=== PATIENT | male | born 1980 | race Caucasian/White ===

== ENCOUNTER 2025-05-05 07:53 | Emergency (ER) | payer MEDICAID, OTHER ==
[~2025-05-05] VITALS: Ht 177.8 cm; Wt 94.3 kg
[2025-05-05 07:57] VITALS: BP 161/109; PULSE 83; TEMP 98.6; O2SAT 98
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
[2025-05-05] MEDS ORDERED: iohexol 300mg/ml 100ml inj. ONE (09:46)
[2025-05-05 09:49] LABS: MEAN PLATELET VOLUME 7.7 FL (7.4-10.4); RED CELL DISTRIBUTION WIDTH 12.6 % (11.5-14.5)
[2025-05-05 10:01] LABS: CREATININE 0.86 MG/DL (0.60-1.10); TOTAL CARBON DIOXIDE 29.2 MMOL/L (24-32); eCRCL 114 ML/MIN; eGFR > 90 ML/MIN
[2025-05-05 12:41] VITALS: RESP 16
[2025-05-05] MEDS: ketorolac trometh 30MG/ML vial 30 MG/ML VIAL IM STA (12:41)
[2025-05-05] MEDS ORDERED: SULF1TAB49 PO (13:09)
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
== END 2025-05-05 19:23 | disposition home or self-care (01) ==
LOC: ER 07:54
DX: M27.2 Inflammatory conditions of jaws (principal)
CPT/HCPCS: 10060; 36415; 70487; 80048; 83605; 84145; 85025; 96372; 99285; A6266; J1885; J7030; Q9967